=== PATIENT | male | born 1970 | race Two or more races ===

== ENCOUNTER 2018-02-21 14:08 | Emergency (ER) | payer OTHER ==
[2018-02-21 14:26] VITALS: TEMP 97.2; BMI 38.7
--- NOTE | 2018-02-21 14:58 | PDOC ---
History of Present Illness - General Chief Complaint: Blood Sugar Problem Stated Complaint: HYPOGLYCEMIA Time Seen by Provider: 02/21/18 14:17 History Source: Patient, [employer] Exam Limitations: No Limitations - History of Present Illness Initial Comments: This is a 47 YOM with h/o IDDM (takes 100 U/day Lantus in the morning and 100 U/ day insulin split morning/evening), HTN, HLD, obesity, and multiple orthopedic issues from a work injury in 2013. He presents with an episode of lightheadedness, shakiness, and diaphoresis while getting an open MRI today. The patient was removed from the MRI at the onset of symptoms by staff, taken to sit down in a chair, and he cannot remember whether or not he lost consciousness at this time. EMS was called to the scene and found the patient obtunded and hypertensive. They measured his CBG to be 42, administered dextrose , and noted he was immediately confused, agitated, combative, throwing punches, etc. He calmed down after several minutes and EMS re-checked his CBG to be 173, and his BP normalized. His field EKG was unremarkable per EMS. The patient himself notes that he does not remember what happened after he sat down in the chair at the MRI studio, the next thing he remembers is arriving here to the ED. Past History - Past Medical History Allergies/Adverse Reactions: Allergies Allergy/AdvReac Type Severity Reaction Status Date / Time No Known Allergies Allergy Verified 02/21/18 14:20 Home Medications: Ambulatory Orders Insulin Glargine,Hum.rec.anlog [Lantus Solostar PEN (NF)] 100 units SQ AM Insulin Lispro Protamin/Lispro [Humalog Mix 50-50 Kwikpen] 100 unit SQ AM Review of Systems - Review of Systems Able to Perform ROS?: Yes Constitutional: No: Chills, Fever, Unexplained wgt Loss HEENTM: No: Nose Congestion, Throat Pain Respiratory: No: Cough, Shortness of Breath Cardiac (ROS): Yes: Syncope (versus pre-syncope). No: Chest Pain, Palpitations ABD/GI: No: Constipated, Diarrhea, Nausea, Vomiting : No: Burning, Dysuria Musculoskeletal: Yes: Back Pain (states unchanged chronic). No: Neck Pain Integumentary: No: Bruising, Rash Neurological: No: Headache, Numbness, Tingling, Weakness, Dizziness Endocrine: Yes: Excessive Sweating (resolved). No: Unexplained Weight Gain, Unexplained Weight Loss *Physical Exam - Physical Exam General Appearance: Yes: Nourished, Appropriately Dressed, Obese, Other (alert and oriented pleasant adult male in no distress, answering questions appropriately, conversive). No: Apparent Distress HEENT: positive: EOMI, RADAMES, Normal Voice, Hearing Grossly Normal. negative: Scleral Icterus (R), Scleral Icterus (L), Nasal Congestion Neck: positive: Trachea midline, Supple. negative: Tender, Rigid Respiratory/Chest: positive: Lungs Clear, Normal Breath Sounds. negative: Respiratory Distress, Crackles, Rhonchi, Stridor, Wheezing Cardiovascular: positive: Regular Rhythm, Regular Rate, S1, S2. negative: Edema , JVD, Murmur Gastrointestinal/Abdominal: positive: Normal Bowel Sounds, Soft. negative: Tender, Organomegaly, Pulsatile Mass, Guarding Musculoskeletal: positive: Normal Inspection. negative: Decreased Range of Motion, Vertebral Tenderness Extremity: positive: Normal Capillary Refill, Normal Inspection, Normal Range of Motion. negative: Tender, Cyanosis Integumentary: positive: Normal Color, Dry, Warm. negative: Erythema, Rash, Bruising Neurologic: positive: mail distribution clerk II-XII NML intact (grossly), Fully Oriented, Alert, Normal Mood/Affect, Normal Response, Motor Strength 5/5, Finger to Nose (normal) . negative: Facial Droop, Numbness, Sensory Deficit, Confused, Disoriented Heart Score/ECG Review #1 ECG reviewed & interpreted by me at: 14:25 NSR, rate of 65, normal axis and intervals, no ST-T changes. ED Treatment Course - LABORATORY CBC & Chemistry Diagram: 02/21/18 15:10 02/21/18 15:10 Medical Decision Making - Medical Decision Making Adult male patient p/w syncope. Initial Vital Signs Temp Pulse Resp BP Pulse Ox 97.2 F L 77 18 139/89 95 02/21/18 14:11 02/21/18 14:11 02/21/18 14:11 02/21/18 14:11 02/21/18 14:11 Exam notable for: a/o x4, no distress, normal heart, lung, abdominal, and neuro exams. DDX IBNLT: metabolic/electrolyte derangement (e.g. hypoglycemia), much less likely any of the following: arrhythmia (WPW, Brugada, long QT, SVT, A-fib, ventricular dysrhythmia, etc), HOCM, vasovagal, orthostasis, infection, anemia, PE, AD, SAH, ACS, hemorrhage (e.g. AAA, GIB). The patient had a non-traumatic syncopal vs. pre-syncopal episode and does not need W/U ordered: CBCD CMP Mg Phos Troponin CK CKMB BNP UA UCx EKG CXR FOBT Monitor CT Head/C-Spine TX ordered: IVF EKG: NSR, rate of 65, normal axis and intervals, no ST-T changes. Laboratory Tests 02/21/18 02/21/18 02/21/18 15:10 15:10 15:12 WBC 11.0 H RBC 6.73 H Hgb 18.9 H Hct 56.1 H MCV 83.3 MCH 28.1 MCHC 33.8 RDW 16.7 H Plt Count 180 MPV 9.1 Neutrophils % 84.6 H Lymphocytes % 7.3 L Monocytes % 7.4 Eosinophils % 0.4 Basophils % 0.3 Sodium 141 Potassium 4.0 Chloride 105 Carbon Dioxide 26 Anion Gap 10 BUN 8 Creatinine 1.1 Creat Clearance w eGFR > 60 POC Glucometer 117.55019 Random Glucose 80 Calcium 9.2 Total Bilirubin 0.4 AST 27 ALT 31 Alkaline Phosphatase 56 Total Protein 7.6 Albumin 3.7 Urine Color Urine Appearance Urine pH Ur Specific [place] Urine Protein Urine Glucose (UA) Urine Ketones Urine Blood Urine Nitrite Urine Bilirubin Urine Urobilinogen Ur Leukocyte Esterase 02/21/18 02/21/18 17:15 17:45 WBC RBC Hgb Hct MCV MCH MCHC RDW Plt Count MPV Neutrophils % Lymphocytes % Monocytes % Eosinophils % Basophils % Sodium Potassium Chloride Carbon Dioxide Anion Gap BUN Creatinine Creat Clearance w eGFR POC Glucometer 120.27653 Random Glucose Calcium Total Bilirubin AST ALT Alkaline Phosphatase Total Protein Albumin Urine Color Dkyellow Urine Appearance Slcloudy Urine pH 5.0 Ur Specific [place] 1.016 Urine Protein Negative Urine Glucose (UA) 1+ H Urine Ketones Trace H Urine Blood Negative Urine Nitrite Negative Urine Bilirubin Negative Urine Urobilinogen Negative Ur Leukocyte Esterase Negative Vital Signs Temperature 97.2 F L 02/21/18 14:11 Pulse Rate 91 H 02/21/18 18:11 Respiratory Rate 18 02/21/18 14:11 Blood Pressure 133/79 02/21/18 18:11 O2 Sat by Pulse Oximetry (%) 97 02/21/18 18:11 Reassessment: exam benign, patient feels well, wants to go home. He understands that he must eat a normal meal for breakfast if he takes his insulin in the morning. There is clear reason for the patient's syncopal episode which is hypoglycemia. There is clear reason for the hypoglycemia as patient took insulin this morning and did not eat. Per [place] Syncope Rule: patient is low risk for ventricular dysrhythmia and/or . Patient also reports no exertional syncope and no sudden in a relative. Workup is not concerning for emergency-level pathology at this time. On EKG no e/o WPW, Brugada, epsilon wave, right heart strain, long QT, or other concern. The patient is appropriate for discharge with close outpatient follow up. He is comfortable with this plan and will follow up with his PCP in 1-3 days. He is advised to always eat after taking his insulin, and to check his BG at home. Return precautions are discussed and they will come back to the ER if necessary. *DC/Admit/Observation/Transfer Diagnosis at time of Disposition: Hypoglycemia - Discharge Dispostion Disposition: HOME Condition at time of disposition: Stable Decision to Admit order: No - Referrals Referrals: Ben Waldrop [Primary Care Provider] - - Patient Instructions Printed Discharge Instructions: DI for Hypoglycemia Additional Instructions: You were seen in the ER for low blood sugar. We did blood and urine labs, and an EKG, and there were no concerning abnormalities. Your blood sugar normalized while you were here in the department. After our assessment, we do not believe you are having a medical emergency at this time, and we believe you are safe to go home. Please always eat after taking your insulin, and check your blood sugar levels at home. You blood sugar was measured as low as 42 today by the paramedics and this is very dangerous. Please follow up with your regular PCP doctor in 1-3 days. Call their clinic as soon as possible, tell them you were seen in the ER, and tell them you need an appointment. If you have any new or worsening symptoms (like shortness of breath, passing out, chest pain, sweats, low blood sugar, high blood sugar, or other symptoms), please come back to the ER at any time (24 hours a day). If you are having severe or life threatening symptoms, or symptoms that make it unsafe to drive or have someone drive you, please call 911. - Post Discharge Activity
--- NOTE | 2018-02-21 15:29 | PDOC ---
Attending Attestation - Resident Resident Name: Liliane Dos Santos - ED Attending Attestation I have performed the following: I have examined & evaluated the patient, The case was reviewed & discussed with the resident, I agree w/resident's findings & plan, Exceptions are as noted - Medical Decision Making 02/21/18 15:26 47 y male with h/o DM on lantus 100 units q am, and 50/50 here wtih hypoglycemic episode while at MRI of shoulder for preop. sugar was 40 states he did not eat today. differential med side effect. r/o renal injury dehydration or other infection. plan cbc lytes ekg ua, will give food and reassess. if normoglycemic few hours will dc home. <Rosi Stover - Last Filed: 02/21/18 16:07> - HPI HPI: 02/21/18 15:31 Patient is a 47 year old male with PMHx of DM, chronic lumbar back pain (since 2014), who presents with hypoglycemia. Patient states that he takes 100 mg Lantus in the morning (50/50). As per nursing notes, EMS gave dextrose 50 mg one amp IV for bgm 40. Second bgm 172. Patient states that he did not eat anything this morning. He is also complaining of his chronic lower back pain radiating to his right leg. Patient denies chest pain, sob, nausea, vomiting, diarrhea. He denies fever chills. He denies numbness, tingling. Denies any urinary complaints. PCP: Ben Waldrop 02/21/18 16:08 - Physicial Exam PE: GENERAL: Awake, alert, and fully oriented, in no acute distress HEAD: No signs of trauma EYES: PERRLA, EOMI, sclera anicteric, conjunctiva clear ENT: Auricles normal inspection, nares patent, Moist mucosa NECK: Normal ROM, supple, no lymphadenopathy, JVD, or masses LUNGS: Breath sounds equal, clear to auscultation bilaterally. No wheezes, and no crackles HEART: Regular rate and rhythm, normal S1 and S2, no murmurs, rubs or gallops ABDOMEN: Soft, nontender, normoactive bowel sounds. No guarding, no rebound. No masses EXTREMITIES: Normal range of motion, no edema. Strength 5/5 in all 4 extremities. Sensation intact. No clubbing or cyanosis. No cords, erythema, or tenderness NEUROLOGICAL: Normal speech SKIN: Warm, Dry, normal turgor, no rashes or lesions noted. <Marguerite Matthews - Last Filed: 02/21/18 16:08> Heart Score/ECG Review #1 General ECG Interpretation: Sinus Rhythm, Normal Rate, Normal Intervals, No acute ischemic changes (TWI III, AVF) <Rosi Stover - Last Filed: 02/21/18 16:07>
[2018-02-21 15:39] LABS: BASO % 0.3 % (0-2.0); EOS % 0.4 % (0-4.5); HEMATOCRIT 56.1 % (35.4-49); HEMOGLOBIN 18.9 GM/dL (11.7-16.9); LYMPH % 7.3 % (8-40); MCH 28.1 pg (25.7-33.7); MCHC 33.8 g/dl (32.0-35.9); MEAN CELL VOLUME 83.3 fl (80-96); MEAN PLT VOLUME 9.1 fl (7.5-11.1); MONO % 7.4 % (3.8-10.2); NEUT % 84.6 % (42.8-82.8); PLATELET COUNT 180 K/MM3 (134-434); RBC 6.73 M/mm3 (4.00-5.60); RDW 16.7 % (11.9-15.9)
[2018-02-21 16:08] LABS: ALBUMIN 3.7 g/dl (3.4-5.0); ANION GAP 10 (8-16); BLOOD UREA NITROGEN 8 mg/dL (7-18); CALCIUM 9.2 mg/dL (8.5-10.1); CHLORIDE 105 mmol/L (98-107); CO2 26 mmol/L (21-32); CREATININE 1.1 mg/dL (0.7-1.3); GLUCOSE,RANDOM 80 mg/dL (74-106); SGOT/AST 27 U/L (15-37); SGPT/ALT 31 U/L (12-78); SODIUM 141 mmol/L (136-145)
[2018-02-21 16:10] LABS: ALK PHOS 56 U/L (45-117); BILIRUBIN,TOTAL 0.4 mg/dL (0.2-1.0); TOT PROT 7.6 g/dl (6.4-8.2)
[2018-02-21] MEDS ORDERED: PANTOPRAZOLE SODIUM 40 MG VIAL IVPUSH ONE (17:52)
[2018-02-21 18:27] VITALS: BP 133/79; PULSE 91
[2018-02-21 19:03] LABS: URINE APPEARANCE SLCLOUDY; URINE BILIRUBIN NEGATIVE (<2.0 mg/dL); URINE BLOOD NEGATIVE (NEGATIVE); URINE COLOR DKYELLOW; URINE GLUCOSE (UA) 1+ (NEGATIVE); URINE KETONE TRACE (NEGATIVE); URINE LEUK ESTERASE NEGATIVE (NEGATIVE); URINE NITRITE NEGATIVE (NEGATIVE); URINE PROTEIN NEGATIVE (NEGATIVE); URINE UROBILINOGEN NEGATIVE mg/dL (0.2-1.0)
--- NOTE | 2018-02-22 10:46 | EKG ---
Test Reason : Blood Pressure : / mmHG Vent. Rate : 065 BPM Atrial Rate : 065 BPM P-R Int : 162 ms QRS Dur : 110 ms QT Int : 368 ms P-R-T Axes : 041 016 002 degrees QTc Int : 382 ms NORMAL SINUS RHYTHM NORMAL ECG NO PREVIOUS ECGS AVAILABLE Confirmed by MARIZA VELIZ MD ([id number]) on 02/22/2018 10:45:57 AM Referred By: Confirmed By:MARIZA VELIZ MD
== END 2018-02-21 19:13 | disposition home or self-care (01) ==
LOC: JER 14:08
DX: E10.649 Type 1 diabetes mellitus with hypoglycemia without coma (principal); Z79.4 Long term (current) use of insulin; I10 Essential (primary) hypertension; E78.00 Pure hypercholesterolemia, unspecified; E66.9 Obesity, unspecified; Z68.37 Body mass index [BMI] 37.0-37.9, adult
CPT/HCPCS: 36415; 80053; 81003; 82962; 85025; 87086; 93005; 93010; 99282-25

== ENCOUNTER 2018-07-10 08:45 | Day surgery (SDC) | payer OTHER ==
[2018-07-09 12:39] VITALS: BMI 38.7
[2018-07-10] MEDS ORDERED: LIDOCAINE HCL 2% JELLY 10 ML CARTRIDGE ONE (11:27)
[2018-07-10] MEDS ORDERED: PROPOFOL 20 ML ONE (11:30)
[2018-07-10] MEDS ORDERED: MIDAZOLAM HCL 2 MG/2 ML SINGLE DOSE VIAL ONE (11:30)
[2018-07-10] MEDS ORDERED: LIDOCAINE HCL 2% JELLY 10 ML CARTRIDGE TP ONE (11:38)
[2018-07-10] MEDS ORDERED: ceFAZolin 2 GRAM PREMIX BAG IVPB ONE (11:53)
[2018-07-10] MEDS ORDERED: ceFAZolin SODIUM 1 GM VIAL ONE (11:53)
[2018-07-10] MEDS ORDERED: IOHEXOL 300 MG/ML INFUS..BTL IV ONE (12:00)
[2018-07-10] MEDS ORDERED: ONDANSETRON 4 MG/2 ML VIAL IVPUSH PRN (12:30)
[2018-07-10] MEDS ORDERED: LACTATED RINGERS SOLUTION 1,000 ML IV SCH (12:30)
[2018-07-10] MEDS ORDERED: oxyCODONE HCL 5 MG TABLET PO PRN ×2 (12:30→14:59)
[2018-07-10] MEDS ORDERED: oxyCODONE HCL 5 MG TABLET ONE ×2 (14:32→14:56)
[2018-07-10 16:44] VITALS: BP 160/90
[2018-07-10 16:56] VITALS: PULSE 78; TEMP 97.8
--- NOTE | 2018-07-11 07:07 | HP ---
DATE OF ADMISSION: DATE OF DICTATION: 07/10/2018 HISTORY: The patient is a 47-year-old male with a history of persistent microscopic hematuria. A urine FISH and cytology are suspicious for neoplasm. The patient has undergone cystoscopy with bilateral retrograde pyelograms and bilateral urine cytologies. It appeared that the left renal fluid was positive for neoplastic cells. PAST MEDICAL HISTORY: The patient does have a history of diabetes, hypertension, COPD, and hyperlipidemia. SOCIAL HISTORY: He denies ethanol, tobacco. ALLERGIES: He denies any allergies. PAST SURGICAL HISTORY: He has undergone a lumbar as well as cervical laminectomy. PHYSICAL EXAMINATION: CHEST: Presently, his chest is clear. ABDOMEN: Soft. No CVA tenderness. GENITALIA: Atraumatic. Testes are in the scrotum. There are no hernias or hydroceles. Phallus normal. Meatus adequate. RECTAL: Reveals a 2+ smooth, benign, nontender prostate. Rectal tone is good. Saddle sensation is present. Bulbocavernosus reflex is also brisk. IMPRESSION: At present is: 1. Mild prostatism with benign prostatic hypertrophy. 2. Persistent, microscopic hematuria with a history of positive urinary cytology. PLAN: Cystourethroscopy, bilateral retrograde pyelograms, bilateral ureteroscopies, and possible renal pelvic biopsies. Procedure was explained to the patient fully, and he agrees. Isiah [id number]
--- NOTE | 2018-07-11 08:46 | OP ---
DATE OF OPERATION: 07/10/2018 PREOPERATIVE DIAGNOSES: Positive cytology, persistent microscopic hematuria, left hydronephrosis. OPERATIVE PROCEDURE: Cystourethroscopy, collection of urine for cytology, biopsy of bladder lesion, fulguration of bladder lesion, left retrograde pyelogram, left ureteroscopy, left renal pelvic biopsy, and placement of a left JJ stent. ANESTHESIA: General. Under the above-stated anesthesia, patient was prepped and draped in the usual sterile manner, placed in the dorsal lithotomy position. Cystoscopy revealed mild prostatic hypertrophy. Bladder was entered. A macular lesion was found in the left hemitrigone of the bladder. This was biopsied. The base was fulgurated for hemostasis. A left retrograde pyelogram was performed. This revealed a full left renal pelvis. No filling defects were noted. A Glidewire was passed up the left renal unit. Ureteroscopy was performed. This revealed a normal ureter. The renal pelvis had hyperemic area in the lower calyceal system. This was biopsied multiple times. The ureteroscope was removed. A double J stent was left in place. X-rays confirmed good position of the stent. The bladder was emptied. The scope was removed. The patient tolerated the procedure well. Isiah [id number]
--- NOTE | 2018-07-14 14:43 | PATH ---
Surgical Pathology Report Patient Name: SHANKAR ESPINAL [facility]. Rec. #: [id number] /Age/Gender: 1970 (Age: 47) / M Account: [id number] Location: [facility] Taken: 07/10/2018 Received: 07/13/2018 Reported: 07/14/2018 Physicians: Kvng Leon M.D. Specimen(s) Received A: BLADDER BIOPSY B: LEFT RENAL PELVIS BIOPSY Clinical History Cystoscopy, left renal pelvic biopsy Final Diagnosis A. BLADDER, BIOPSY: POLYPOID BENIGN BLADDER MUCOSA WITH FOCAL CYSTITIS GLANDULARIS. B. RENAL PELVIS, LEFT, BIOPSY: SMALL FRAGMENTS OF DENUDED UROTHELIAL MUCOSA COMPRISED BY SCANT LAMINA PROPRIA AND SCANT MUSCULARIS MUCOSAE. Comment: Concurrent Urinary tract FISH (3,7,17) on the left renal pevis and bladder urine ([id number] and [id number]) are negative. See concurrent cytology materials ([id number], [id number]). See [facility] report for additional details. Electronically Signed Sabrina Armstrong M.D. Gross Description A. Received in formalin, labeled "bladder biopsy" are 2 aclderon, irregular portions of soft tissue averaging 0.4 cm. in greatest dimension. The specimens are submitted in toto in one cassette. B. Received in formalin, labeled "left renal pelvis biopsy" are 3 calderon, irregular portions of soft tissue ranging from less than 0.1-0.1 cm. in greatest dimension. The specimens are submitted in toto in one cassette. 07/13/2018 saudi07/13/2018
--- NOTE | 2018-07-14 14:47 | PATH ---
Cytology Non-Gynecological Report Patient Name: SHANKAR ESPINAL Med. Rec. #: [id number] /Age/Gender: 1970 (Age: 47) / M Account: [id number] Location: [facility] SUR[facility] Taken: 07/10/2018 Received: 07/10/2018 Reported: 07/14/2018 Physicians: Kvng Leon M.D. Specimen(s) Received LEFT RENAL PELVIS FLUID ALSO SENT TO [facility] FOR FISH STUDIES Clinical History Positive cytology, microscopic hematuria Final Diagnosis RENAL PELVIS, LEFT, FOR CYTOLOGY: SATISFACTORY FOR EVALUATION. NEGATIVE FOR HIGH GRADE UROTHELIAL CARCINOMA. SCATTERED UROTHELIAL CELLS AND RED BLOOD CELLS PRESENT. FEW UROTHELIAL FRAGMENTS PRESENT. Comment: Urothelial fragments are suggestive of prior instrumentation. Concurrent Urinary tract FISH (3,7,17) performed and interpreted at [facility] laboratory ([id number]) is negative. See concurrent materials ([id number] and [id number]). See Emerge report for details ([id number]). Electronically Signed Sabrina Armstrong M.D. Gross Description Approximately 2.5 cc of bloody fluid received fresh. One cytofunnel and cell block prepared. Material forwarded to [facility] for ancillary FISH testing.
--- NOTE | 2018-07-14 14:50 | PATH ---
Cytology Non-Gynecological Report Patient Name: SHANKAR ESPINAL Med. Rec. #: [id number] /Age/Gender: 1970 (Age: 47) / M Account: [id number] Location: [facility] Taken: 07/10/2018 Received: 07/10/2018 Reported: 07/14/2018 Physicians: Kvng Leon M.D. Specimen(s) Received BLADDER URINE ALSO SENT TO [facility] FOR FISH STUDIES Clinical History Microscopic hematuria, positive cytology Final Diagnosis BLADDER URINE FOR CYTOLOGY: SATISFACTORY FOR EVALUATION. NEGATIVE FOR HIGH GRADE UROTHELIAL CARCINOMA. SCATTERED UROTHELIAL CELLS AND UROTHELIAL FRAGMENTS PRESENT. Comment: Urothelial fragments are suggestive of prior instrumentation. Concurrent Urinary tract FISH (3,7,17) performed and interpreted at [facility] laboratory ([id number]) is negative. See concurrent materials ([id number] and [id number]). See Emerge report for details ([id number]). . Electronically Signed Sabrina Armstrong M.D. Gross Description Approximately 50 cc of yellow fluid received fresh. One cytofunnel prepared. Material forwarded to [facility] for ancillary FISH testing.
== END 2018-07-10 17:00 | disposition home or self-care (01) ==
LOC: JASU-SURG 08:45
PROVIDERS: ATTEND Urology
PROC: 0T9780Z Drainage of Left Ureter with Drainage Device, Via Natural or Artificial Opening Endoscopic (ICD-10-PCS; 2018-07-10)
PROC: 0TB18ZX Excision of Left Kidney, Via Natural or Artificial Opening Endoscopic, Diagnostic (ICD-10-PCS; principal; 2018-07-10 10:30)
DX: D30.3 Benign neoplasm of bladder (principal); D30.02 Benign neoplasm of left kidney; N13.30 Unspecified hydronephrosis; R31.29 Other microscopic hematuria; I10 Essential (primary) hypertension; E11.9 Type 2 diabetes mellitus without complications; Z79.4 Long term (current) use of insulin; J45.909 Unspecified asthma, uncomplicated
CPT/HCPCS: 76000-TC-FY; 82962; 88108; 88305-TC; 94760